=== PATIENT | female | born 1990 | race African-American/Black ===

== ENCOUNTER 2016-10-13 16:45 | Emergency (ER) | payer OTHER ==
[2016-10-13] MEDS ORDERED: HYDROCODONE/ACETAMINOPHEN 5-325 MG TABLET PO ONE (17:07)
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
[2016-10-13] MEDS ORDERED: IBUPROFEN 600 MG TABLET PO ONE (18:56)
[2016-10-13 21:27] VITALS: BP 121/77
== END 2016-10-13 20:09 | disposition home or self-care (01) ==
LOC: ER 16:45
DX: S99.921A Unspecified injury of right foot, initial encounter (principal); V89.2XXA Person injured in unspecified motor-vehicle accident, traffic, initial encounter
CPT/HCPCS: 99283

== ENCOUNTER 2016-10-19 19:48 | Emergency (ER) | payer OTHER ==
[2016-10-19 20:02] VITALS: BP 137/104
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
[2016-10-19] MEDS ORDERED: IBUPROFEN 800 MG TABLET PO ONE (20:06)
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
== END 2016-10-19 20:50 | disposition home or self-care (01) ==
LOC: ER 19:48
DX: Z53.9 Procedure and treatment not carried out, unspecified reason (principal); M79.671 Pain in right foot; F17.210 Nicotine dependence, cigarettes, uncomplicated
CPT/HCPCS: 99283

== ENCOUNTER 2016-11-08 23:50 | Emergency (ER) | payer OTHER ==
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
[2016-11-09] MEDS ORDERED: IBUPROFEN 800 MG TABLET PO ONE (01:32)
[2016-11-09 01:44] LABS: ABSOLUTE EOSINOPHILS # (AUTO) 0.1 10^3/uL (0.0-0.6); ABSOLUTE LYMPHOCYTES (AUTO) 2.6 10^3/uL (0.5-4.7); ABSOLUTE MONOCYTES (AUTO) 0.4 10^3/uL (0.1-1.4); ABSOLUTE NEUT (AUTO) 4.1 10^3/uL (1.7-8.2); BASOPHILS % (AUTO) 0.5 % (0-2); HEMATOCRIT 41.2 % (36.0-47.0); HEMOGLOBIN 13.6 g/dL (12.0-15.5); HGB HCT DIFFERENCE -0.4; MEAN CORPUSCULAR HEMOGLOBIN 27.5 pg (27.0-33.4); MEAN CORPUSCULAR HGB CONC 32.9 g/dL (32.0-36.0); MEAN CORPUSCULAR VOLUME 84 fl (80-97); MONOCYTES % (AUTO) 5.9 % (3-13); RED BLOOD COUNT 4.93 10^6/uL (3.72-5.28); SEGMENTED NEUTROPHILS % (AUTO) 56.6 % (42-78); WHITE BLOOD COUNT 7.3 10^3/uL (4.0-10.5)
[2016-11-09 02:07] LABS: ALANINE AMINOTRANSFERASE 30 U/L (9-52); ALBUMIN 4.1 g/dL (3.5-5.0); ALKALINE PHOSPHATASE 71 U/L (38-126); ANION GAP 11 (5-19); ASPARTATE AMINO TRANSFERASE 29 U/L (14-36); BILIRUBIN,TOTAL 0.3 mg/dL (0.2-1.3); BLOOD UREA NITROGEN 12 mg/dL (7-20); CALCIUM 9.6 mg/dL (8.4-10.2); CARBON DIOXIDE 25 mmol/L (22-30); CHLORIDE 104 mmol/L (98-107); CREATININE RESULT 0.75 mg/dL (0.52-1.25); GLUCOSE 95 mg/dL (75-110); POTASSIUM 4.1 mmol/L (3.6-5.0); SODIUM 139.6 mmol/L (137-145); TOTAL PROTEIN 7.3 g/dL (6.3-8.2)
[2016-11-09 02:08] LABS: ALCOHOL < 10 mg/dL (NONE DETECTED)
[2016-11-09 02:50] LABS: URINE BARBITURATES SCREEN NEGATIVE; URINE METHADONE SCREEN NEGATIVE; URINE OPIATES LOW NEGATIVE; URINE PHENCYCLIDINE SCREEN NEGATIVE
[2016-11-09 03:10] VITALS: BP 116/75
== END 2016-11-09 03:10 | disposition home or self-care (01) ==
LOC: ER 23:50
DX: F41.9 Anxiety disorder, unspecified (principal)
CPT/HCPCS: 36415; 80053; 80307; 84703; 85025; 99284